=== PATIENT | male | born 1990 | race Two or more races ===

== ENCOUNTER 2025-01-29 16:17 | Emergency (ER) | payer SELFPAY ==
[~2025-01-29] VITALS: Ht 162.6 cm; Wt 93.0 kg
--- NOTE | 2025-01-29 17:18 | Physician Documentation ---
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 He has had associated fever chills and sore throat. Patient also complains of body aches in his back hurting. Patient has had clear sputum when he coughs. No nausea vomiting diarrhea. No abdominal pain. No other associated symptoms. Review of systems: All systems were reviewed and are negative except for what is indicated in the history of present illness. Past Medical History: None Past Surgical History: None Social History: Occasional tobacco use, occasional alcohol use, denies drug use. Medications: Reviewed as documented Nursing Notes Allergies: Reviewed as documented in Nursing Notes Medication Reconciliation Allergies: Coded Allergies: No Known Allergies (Unverified , 01/29/25) Review of Systems All Other Systems at this time: Reviewed and Negative ROS Patient denies any other acute symptoms other than above. All other systems are negative Physical Exam Vital Signs: RN Vital Signs have been reviewed: Yes, Temperature: 98.4, Source: Temporal, Heart Rate: 81, Respiratory Rate: 16, BP: 128/92, Pulse Oximetry: 96, Weight: 93.000 Oxygen Flow Rate: 0 Pulse Oximetry Reflects: adequate oxygenation Physical Exam General Appearance: No distress HEENT: Normal OP, moist oral mucosa, PERRL, EOMI Neck: supple, normal ROM, trachea midline Pulmonary: No respiratory distress, CTA, BS equal Cardiac: RRR, no murmur, rub or gallop, GI: nondistended, soft, nontender, normal bowel sounds, no guarding, no rebound Extremities: normal ROM, no swelling, non-tender Skin: intact, dry, warm, no rashes Neuro: AAOx3, speech is clear, no focal motor weakness Psych: normal affect, good eye contact, no apparent hallucination, normal speech Progress Results/Orders Results/Orders Orders - EMIL NARANJO MD Covid19 Binax Poc Result Entry (01/29/25 17:08) Chest,Single View (01/29/25 17:12) Completed Orders - EMIL NARANJO MD Chest,Single View (01/29/25 17:12) Influenza Type A&B Rapid Test (01/29/25 17:18) Azithromycin Tablet (Zithromax Tablet) (01/29/25 17:35) Medications Received in ER Medications (Trade) Dose Ordered Sig/Denise Route PRN Reason Start Time Stop Time Status Last Admin Dose Admin (Zithromax tablet) 500 mg ONCE ONCE PO 01/29/25 17:35 01/29/25 17:36 DC 01/29/25 17:47 500 MG Vital Signs 01/29/25 16:31 Temp 98.4 Pulse 81 Resp 16 B/P (MAP) 128/92 Pulse Ox 96 O2 Flow Rate 0 Laboratory Tests Test 01/29/25 17:18 Influenza Type A Antigen Negative Influenza Type B Antigen Negative SARS-CoV-2 Antigen (Rapid) Negative Medical Decision Making Findings Differential diagnosis includes but is not limited to: Pneumonia, COVID, influenza, URI, acute bronchitis Chest x-ray, single view, indication: Cough, fever Independent interpretation: Increased interstitial markings in the lungs. Normal mediastinum, normal cardiac silhouette. Possible atypical pneumonia. Laboratory data independent interpretation: Serology: Emergency department course/medical decision-making: Patient presents with cough fever and symptoms consistent with a viral illness. Patient's chest x-ray however does show some increased interstitial markings. Patient will be treated for possible atypical pneumonia. Patient is not septic. Patient does not require lab work. Patient will be started on Zithromax. Departure Time of Disposition: 18:16 Disposition: 01 HOME / SELF CARE / HOMELESS Impression: Primary Impression: Atypical pneumonia Condition: Stable Discharge Instructions: Community-Acquired Pneumonia, Adult, [id number] Prescriptions Azithromycin (Zithromax) 250 Mg Tablet 1 TAB PO UD for 4 Days, #4 TAB 2 the first day followed by 1 for days 2-5 Prov: EMIL NARANJO MD 01/29/25 Education Educated: Patient Educated regarding: diagnosis, treatment Signature Scribe Signature: No scribe Attestation: No scribe EMIL NARANJO MD Jan 29, 2025 17:18
[2025-01-29 17:38] LABS: INFLUENZA TYPE A ANTIGEN RAPID NEGATIVE (Negative); INFLUENZA TYPE B ANTIGEN RAPID NEGATIVE (Negative)
--- NOTE | 2025-01-29 17:41 | RADIOLOGY REPORT ---
CHEST RADIOGRAPH Indication: SOB Technique: Single frontal view of the chest was obtained COMPARISON: None FINDINGS: Lines and Tubes: None Lungs: Clear Pleura: No effusion. No pneumothorax. Cardiomediastinal contours: Unremarkable Bones: Unremarkable IMPRESSION: 1. No acute disease.
[2025-01-29] MEDS ORDERED: AZIT250T3 PO (18:16)
[2025-01-29 18:31] VITALS: BP 129/90; PULSE 81; RESP 18; TEMP 98.6; O2SAT 99
== END 2025-01-29 18:32 | disposition home or self-care (01) ==
LOC: ER 16:18
DX: J18.9 Pneumonia, unspecified organism (principal); Z20.822 Contact with and (suspected) exposure to COVID-19
CPT/HCPCS: 36415; 71045; 87804; 87811; 99284